=== PATIENT | female | born 1965 | race Caucasian/White ===

== ENCOUNTER → 2020-11-15 11:06 | Outpatient (CLI) | payer OTHER, SELFPAY ==
--- NOTE | ~2020-11-15 | XR_ITS ---
EXAMINATION: XR chest 2V 11/15/2020 11:36 INDICATION: Pneumonia. PROCEDURE: 2 view chest COMPARISON: No prior studies for comparison. FINDINGS: The lungs are clear. The cardiomediastinal silhouette is within normal limits. There are no pleural effusions. There is no pneumothorax suspected. There is basilar atelectasis seen on the lateral view. IMPRESSION: 1: NO ACUTE CARDIOPULMONARY DISEASE. Reviewed, dictated and finalized at location A. [employer]
== END ==
DX: J18.9 Pneumonia, unspecified organism (principal)
CPT/HCPCS: 71046

== ENCOUNTER 2024-10-06 10:26 | Emergency (ER) | payer OTHER, SELFPAY ==
--- NOTE | ~2024-10-06 | XR_ITS ---
XR chest 2V Ordering provider: Lesly Kirby APRN History: 59 years Female with . cough X 2 WEEKS . Comparison: November 15, 2020 FINDINGS: MEDIASTINUM: The cardiac silhouette is not enlarged. LUNGS: No infiltrates, effusions or pneumothorax. OTHER: No free air under the diaphragm. IMPRESSION: No acute cardiopulmonary pathology. Reviewed, dictated and finalized at location A. [employer]
[2024-10-06 10:32] VITALS: BP 123/80; PULSE 96; RESP 16; TEMP 36.2; O2SAT 98
--- NOTE | 2024-10-06 10:47 | ED.URI ---
HPI - URI/Sore Throat General Chief Complaint: Upper Respiratory Infection Stated Complaint: respiratory issues Time Seen by Provider: 10/06/24 10:54 Source: patient Mode of arrival: ambulatory Limitations: no limitations History of Present Illness HPI Narrative: 59-year-old female presented for complaint of cough, fatigue, body aches, nasal congestion and pressure over the past 3 days. Symptoms came on suddenly. Endorses chest feels tight with coughing. Denies shortness of breath, wheezing, nausea vomiting. Has taken ibuprofen for symptoms. Endorses exposure to children with similar symptoms. Reports recent air travel. Tested negative for COVID at home 2 days ago. Related Data Home Medications Medication Instructions Recorded Confirmed amitriptyline 10/06/24 sertraline 50 mg tablet 50 mg PO DAILY 10/06/24 10/06/24 Allergies Allergy/AdvReac Type Severity Reaction Status Date / Time erythromycin base Allergy Rash Verified 10/06/24 10:45 Review of Systems Review of Systems: CONSTITUTIONAL: reports body aches, subjective fever, chills EYES: Denies visual changes, redness, or discharge. ENT: reports rhinorrhea, congestion, sore throat CARDIOVASCULAR: Denies chest pain, palpitations, or edema. RESPIRATORY: Reports cough, denies sob, wheezing. GASTROINTESTINAL: Denies abdominal pain, nausea, vomiting, or diarrhea. NEUROLOGIC: Denies headache All systems reviewed & are unremarkable except as noted in HPI and below PMFSH Comments At time of signature, I have reviewed and agree with nursing past medical, surgical, social and family history unless otherwise noted. Please see nursing chart for further information. There is no relevant family history pertinent to the presenting complaint Exam Narrative: GENERAL: Well-appearing, in no acute distress. EYES: EOMI. No redness or drainage. Conjunctivae normal. ENT: Mucous membranes pink and moist. No rhinorrhea. TMs normal bilaterally. Throat normal. Uvula midline. NECK: Normal AROM. Supple. CHEST: No respiratory distress. lungs clear to all olsen. HEART: Regular rate and rhythm. No murmur appreciated. SKIN: Warm, dry, no rash. Capillary refill normal. Normal skin turgor. NEURO: Alert and oriented x3. Gait steady. Course Course Emergency Course: Patient is aware of diagnosis, understands and agrees to treatment plan. Anticipatory guidance given. Patient agrees to follow-up as directed and is aware of reasons to seek care at the emergency department. Portions of this record may have been created with voice recognition software Level of Care: Express Care Visit Vital Signs Vital signs: Vital Signs Temperature 97.1 F L 10/06/24 10:32 Pulse Rate 96 10/06/24 10:32 Respiratory Rate 16 10/06/24 10:32 Blood Pressure 123/80 10/06/24 10:32 Pulse Oximetry 98 10/06/24 10:32 Oxygen Delivery Room Air 10/06/24 10:32 Temperature 97.1 F L 10/06/24 10:32 Pulse Rate 96 10/06/24 10:32 Respiratory Rate 16 10/06/24 10:32 Blood Pressure 123/80 10/06/24 10:32 Pulse Oximetry 98 10/06/24 10:32 Oxygen Delivery Room Air 10/06/24 10:32 MDM - URI/Sore Throat MDM Narrative Medical decision making narrative: Discussed physical exam findings and CXR. Sx likely due to viral illness. Advised supportive measures and signs/symptoms to go to the ER. Pt is appropriate for outpt treatment and f/u. Differential Diagnosis Differential diagnosis: Likely upper respiratory infection, sinusitis, viral infection, bronchitis, influenza and pharyngitis Lab Data Labs: Lab Results 10/06/24 Range/Units 10:59 POC Influenza A Ag Negative (Negative) POC Influenza B Ag Negative (Negative) POC SARS CoV-2 Ag Negative (Negative) Imaging Data Radiologist's impression: Patient: Julee Thompson : 1965 MR#: [id number] Age: 59 Acct:[id number] Loc: [facility] ADM Date: 10/06/24Attending Dr: Ordering Physician: Lesly Kirby APRN Date of Service: 10/06/24 Procedure(s): XR chest 2V Accession Number(s): [id number] cc: Tye, Gena Reyna MD; Lesly Kirby APRN~ XR chest 2V Ordering provider: Lesly Kirby APRN History: 59 years Female with . cough X 2 WEEKS . Comparison: November 15, 2020 FINDINGS: MEDIASTINUM: The cardiac silhouette is not enlarged. LUNGS: No infiltrates, effusions or pneumothorax. OTHER: No free air under the diaphragm. IMPRESSION: No acute cardiopulmonary pathology. Discharge Plan Discharge Clinical Impression: Viral infection Patient Disposition: Home, Self-Care Condition: Stable Instructions: Antibiotic Form, Acute Bronchitis (ED) Additional Instructions: flu and COVID negative Acute bronchitis can be contagious because it is usually caused by infection with a virus or bacteria. It is usually for a few days but you can be contagious for up to one week. Avoid crowds until you do not have a fever and symptoms are improved Take medication as directed Recommend Flonase spray and Zyrtec (or Claritin/Aide) over the counter Cough syrup may cause drowsiness; avoid driving or take it at night time. Tylenol 1000mg every 8 hours as needed for pain Symptomatic treatment includes: rest, fluids, and increase humidity of the air at home. Follow up with your primary care provider Go to the ER for worsening symptoms or concerns Prescriptions: New benzonatate 200 mg capsule 200 mg PO TID PRN (Reason: cough) Qty: 20 0RF methylprednisolone [Medrol (Domingo)] 4 mg tablets,dose pack See Rx Instructions .ROUTE .COMPLEX Qty: 21 0RF Rx Instructions: orally per package directions No Action sertraline 50 mg Tablet 50 mg PO DAILY amitriptyline Follow-up/Referrals: Tye,Gena Reyna MD [Primary Care Provider] - Time of Disposition: 11:33
[2024-10-06 11:23] LABS: EDCOVIDSCREEN Negative (Negative); EDINFLUASCREEN Negative (Negative); EDINFLUBSCREEN Negative (Negative)
== END 2024-10-06 11:40 | disposition home or self-care (01) ==
PROVIDERS: Emergency Provider Nurse Practitioner Family; PCP Family Medicine
DX: B34.9 Viral infection, unspecified (principal); Z20.822 Contact with and (suspected) exposure to COVID-19
CPT/HCPCS: 71046; 87426; 87804; 99213; G0463